=== PATIENT | male | born 1990 | race Caucasian/White ===

== ENCOUNTER 2017-03-07 20:11 | Emergency (ER) | payer SELFPAY ==
[~2017-03-07] VITALS: Ht 193 cm; Wt 77.5 kg
[~2017-03-07 20:11] MED LIST: CLIN300C86 PO; HYDR-4246 PO; NO ROUTINE MEDS
--- OUTSIDE RECORDS SUMMARY | 2017-03-07 20:15 | XMS REPORT | Continuity of Care Document ---
Author Author [facility] Organization [facility] Address Unknown Phone Unavailable Support Name Relationship Address Phone FEBRUARY, ROCKY Mando WILLIS Caregiver [address] [place] [address] Unavailable JEAN BUCK Next Of Kin [address] [place] [address] Insurance Providers Guarantor Nawaf Hanson Jr Address [address] [place] [id number] Email [email or web address] Payer Self Pay Subscriber's Name Valentin FournierNawaf Bonner Relationship 18 Self Chief Complaint and Reason for Visit Chief Complaint Toothache Reason for Visit Dental caries Dental abscess Problems Past Problems Medical Problem Onset Date Dental abscess Unknown Dental caries Unknown Medications Current Home Medications Medication Dose Units Route Directions Days Qty Instructions Start Date Clindamycin Hcl 300 Mg Capsule 1 Cap Oral Three Times A Day 14 Days 42 Capsule TAKE WITH A FULL GLASS OF WATER TO AVOID ESOPHAGEAL IRRITATION. Hydrocodone/Acetaminophen ([place] 5-325 Tablet) 5-325 Tablet 1-2 Tab Oral Q6h/0300,0900,1500,2100 as needed for Pain 20 Tablet 11/10/16 No Routine Meds 11/10/16 Social History Social History Problem Response Recorded Date/Time Onset Date Status Chewing Tobacco Status No 11/10/2016 12:20am Not Applicable Not Applicable Hx Substance Use No 11/10/2016 12:20am Not Applicable Not Applicable Hx Alcohol Use No 11/10/2016 12:20am Not Applicable Not Applicable Query Response Start Date Stop Date Smoking Status Current some day smoker Hospital Discharge Instructions No hospital discharge instructions. Plan of Care Discharge Date 11/10/16 1:01am Disposition 01 DISCHARGED HOME, SELF-CARE Condition at Discharge Improved Instructions/Education Provided Dental Abscess (ED) Dental Caries (ED) Prescriptions See Medication Section Referrals [facility] Order Date: 1 Week Additional Instructions/Education You have had a nerve block; this should last 16 hours +/- 8 hours. Take the antibiotics as prescribed to improve the infection and swelling. Take ibuprofen or naproxen with tylenol for pain; save the norco for severe pain or to help with pain while you sleep. Follow up with a dentist as soon as you can to fix the underlying problem. Care Plan and Goals Physician Care Plan Problem: Dental abscess Goal: Follow up with primary care provider Instructions: Take medications and follow care plan as discussed/written Functional Status No functional status results. Allergies, Adverse Reactions, Alerts No known allergies. Immunizations No immunization records. Vital Signs Acute Vital Signs Vital Response Date/Time Temperature (Fahrenheit) 98.8 deg F (96.8 - 99.1) 11/10/2016 1:01am Temperature (Calculated Celsius) 37.81251 degrees C (36.0 - 37.3) 11/10/2016 1:01am Pulse Rate (adult) 92 bpm (60 - 100) 11/10/2016 1:01am Respiratory Rate 16 breaths/min (10 - 20) 11/10/2016 1:01am O2 Sat by Pulse Oximetry 98 % (90 - 100) 11/10/2016 1:01am Blood Pressure 133/81 mm Hg 11/10/2016 1:01am Height (Feet) 6 feet 11/10/2016 12:09am Height (Inches) 4.00 inches 11/10/2016 12:09am Weight (Kilograms) 83.100 kg 11/10/2016 12:09am Body Mass Index (BMI) 22.0 11/10/2016 12:09am Results No known relevant diagnostic tests, laboratory data and/or discharge summary. Procedures No known history of procedures. Encounters Encounter Location Arrival/Admit Date Discharge/Depart Date Attending Provider Departed Emergency Room [facility] 11/09/16 11:56pm 11/10/16 1: 01am ROCKY ROA DO Recent Diagnosis
[2017-03-07 20:18] VITALS: TEMP 98.7; Ht 193 cm; Wt 77.5 kg
--- NOTE | 2017-03-07 20:37 | ERPDOC ---
Departure Disposition Decision Date: March 07, 2017 Disposition Decision Time: 21:38 Disposition: 01 DISCHARGED HOME, SELF-CARE Impression Impression Impression: Primary Impression: Nausea & vomiting Vomiting type: unspecified Vomiting Intractability: non-intractable Qualified Codes: R11.2 - Nausea with vomiting, unspecified Additional Impression: Dehydration Severity: Moderate Condition: Stable Seen By: Mid-level only Patient Instructions: Acute Nausea and Vomiting (ED) Problems/Meds/Labs Reviewed?: Yes Medications reviewed and manag: Yes Additional Instructions: I do want you to go home and rest. Use the Compazine as needed for nausea. Make sure that you are drinking plenty of non alcoholic and non caffeinated fluids at home. Follow up with PCP for further workup if you are not improving. Follow up care ordered?: Yes Mental Status: Alert Scripts Prochlorperazine Maleate (Compazine) 10 Mg Tablet 10 MG PO TID, #10 TAB 0 Refills Take 1 tablet, by mouth, 3 times a day. Prov: CELESTINA DEL RIO Sandy CONNORS 03/07/17 HPI - Abdominal Pain General Chief Complaint: Nausea,Vomiting,Diarrhea Stated Complaint: NAUSEA/POSSIBLE DEHYDRATION Time Seen by Provider: 20:24 Source: patient History/Exam Limitations: no limitations HPI - Abdominal Pain Initial Comments He went [place] the [place]. Admits to drinking 750ml of whiskey to himself and also a lot of soda and other alcohol. He feels like he over did it with the alcohol. Woke up feeling nauseated today and so he tried to drink a pint of alcohol to help his symptoms. Did help briefly but the nausea returned and he has had some dry heaves as well. The vomiting did start yesterday. He does have a history of ETOH abuse in the past but does not drink so much any longer until this last weekend. Has had chills but no fever. Has epigastric abdominal pain as well. Occurred At: home Onset: Gradual Duration: other (Over the last 4 days) Quality: dullness Location: epigastric Radiation: no radiation Activities at Onset: none Associated Symptoms: fatigue, fever/chills (chills), headache, nausea/vomiting , DENIES: back pain, chest pain, diaphoresis, heartburn, rash, shortness of breath, swelling/mass in abdomen, syncope, weakness Allergies: Coded Allergies: No Known Allergies (Unverified , 03/07/17) Past History Past Medical History ENMT: dental problems Psychological: alcohol abuse Surgical History General: appendix Family History Family History: Negative Social History Smoking Status: Never smoker Substance Use Type: does not use Alcohol Intake: none Review of Systems Constitutional Constitutional: chills, DENIES: dizziness, fatigue, fever, weakness Eyes Vision: DENIES: blurring, double vision ENMT Ears: pain, DENIES: drainage Sinuses: DENIES: congestion, rhinorrhea Mouth/Throat: DENIES: painful swallowing, scratchy throat, sore throat Cardiovascular Cardiac: DENIES: chest pain, orthopnea Rhythm/Rate: DENIES: irregular beat, palpitations Pulmonary Respiratory: DENIES: cough, dyspnea, sputum GI Upper Abdomen: nausea, pain, vomiting Lower Abdomen: DENIES: constipation, diarrhea, pain Integumentary Skin: DENIES: rash Neurological General: DENIES: headache, numbness, tingling, weakness Physical Exam General General Nourishment: well nourished, well developed, appears stated age, no acute distress, adult General Body Habitus: well groomed Vitals and Pain First Documented Vital Signs Date Time Temp Pulse Resp B/P Pulse Ox O2 Delivery O2 Flow Rate FiO2 03/07/17 20:18 98.7 89 16 141/93 98 Room Air Weight: Kilograms: Height (feet): 6 Height (inches): 4.00 Triage Pain Scale: RN VS reviewed by Provider: Yes Normal Exams: Neck: Full range of motion, without adenopathy, JVD, bruits or thyromegaly Chest/Resp: Clear all lemus, with good airflow, and symmetry bilaterally CV: Regular rate and rhythm, without murmur or gallop, Pulses 2+ all extremities, capillary refill, <2 seconds all ext., no pedal edema noted Abdomen: Bowel sounds positive, non-distended, no hepatosplenomegaly, masses or bruits noted Lymphatic: No lymphadenopathy, or lymphedema noted Integumentary: No rashes, hives, or bruising noted Neurologic: Patient is alert, and oriented Psychiatric: Patient exhibits, appropriate attention, emotion and affect Abdomen Palpation: FOUND: soft, tender (generalized TTP in abdomen), voluntary guarding , NOT FOUND: involuntary guarding, rebound Differential Diagnoses Considering: Dehydration, Gastroenteritis, Hyponatremia, Hypokalemia, Hypoglycemia, Metabolic Alkalosis, Metabolic Acidosis, Pancreatitis Progress Results/Orders Orders Procedure Category Date Status Time Cbc W/Auto LAB 03/07/17 Complete Diff-Reflex Manual Cmp - Comprehensive LAB 03/07/17 Complete Metabolic Lipase LAB 03/07/17 Complete Iv Lock (Ed Only) EDM 03/07/17 Transmitted 20:33 Normal Saline (Normal PHA 03/07/17 Complete Saline Iv) 20:45 Ondansetron Inj PHA 03/07/17 Complete (Zofran) 20:45 Prochlorperazine PHA 03/07/17 Complete (Compazine) 21:15 Normal Saline (Normal PHA 03/07/17 In Process Saline Iv) 21:45 Lab Results Laboratory Tests Test 03/07/17 20:50 White Blood Count 11.5T/MM3 Red Blood Count 4.95M/MM3 Hemoglobin 15.6GM/DL Hematocrit 43.7% Mean Corpuscular Volume 88.3UM3 Mean Corpuscular Hemoglobin 31.5UUG Mean Corpuscular Hemoglobin Concent 35.7GM/DL RDW Standard Deviation 40.0FL Platelet Count 210T/MM3 Mean Platelet Volume 9.7UM3 Immature Granulocyte % (Auto) 0.1% Neutrophils (%) (Auto) 68.2% Lymphocytes (%) (Auto) 23.4% Monocytes (%) (Auto) 7.3% Eosinophils (%) (Auto) 0.7% Basophils (%) (Auto) 0.3% Absolute Immature Granulocyte (auto 0.01T/MM3 Absolute Neutrophils (auto) 7.9T/MM3 Absolute Lymphocytes (auto) 2.7T/MM3 Absolute Monocytes (auto) 0.8T/MM3 Absolute Eosinophils (auto) 0.1T/MM3 Absolute Basophils (auto) 0.0T/MM3 Turbidity < 20 Sodium Level 144MEQ/L Potassium Level 3.6MEQ/L Chloride Level 107MEQ/L Carbon Dioxide Level 22MEQ/L Anion Gap 15MEQ/L Blood Urea Nitrogen 17.0MG/DL Creatinine 0.9MG/DL Glomerular Filtration Rate Calc 100 BUN/Creatinine Ratio 19RATIO Glucose Level 99MG/DL Calculated Osmolality 279MOSM/KG Calcium Level 9.7MG/DL Total Bilirubin 1.20MG/DL Icterus Index < 2 Aspartate Amino Transf (AST/SGOT) 49U/L Alanine Aminotransferase (ALT/SGPT) 41U/L Alkaline Phosphatase 59U/L Total Protein 6.9G/DL Albumin 4.4G/DL Globulin 2.5G/DL Albumin/Globulin Ratio 1.8RATIO Lipase 135U/L Chemistry Specimen Hemolysis < 15 Medications Current ED Medications Sodium Chloride (Normal Saline IV) 1,000 ml @ 1,000 mls/hr Q1H ONCE IV Last administered on 03/07/17 20:53; Start 03/07/17 at 20:45; Stop 03/07/17 at 21:44 ; Status DC Ondansetron HCl (Zofran) 4 mg O ONCE IV Last administered on 03/07/17 20:53; Start 03/07/17 at 20:45; Stop 03/07/17 at 20:46; Status DC Prochlorperazine Edisylate 10 mg 10 mg O ONCE IV Last administered on 21:22; Start 03/07/17 at 21:15; Stop 03/07/17 at 21:16; Status DC Sodium Chloride (Normal Saline IV) 1,000 ml @ 1,000 mls/hr Q1H ONCE IV Last administered on 03/07/17 21:42; Start 03/07/17 at 21:45; Stop 03/07/17 at 22:44 Progress Progress He is feeling a little better after 1 liter of IVF. Still having some swelling and pain in his hands bilaterally. His mother does report that he has had this kind of reaction in the past with heavy drinking however. Will give him a 2nd liter of IVF and have him go home with some Compazine. CELESTINA DEL RIO APRN March 07, 2017 20:37
[2017-03-07] MEDS ORDERED: ONDANSETRON 4mg/2ml INJECTION IV ONE (20:45)
[2017-03-07] MEDS ORDERED: NORMAL SALINE 1,000 ML IV ONE ×2 (20:45→21:45)
[2017-03-07 20:56] LABS: BASOPHILS % (AUTO) 0.3 % (0-2); EOSINOPHILS # (AUTO) 0.1 T/MM3 (0-0.5); EOSINOPHILS % (AUTO) 0.7 % (0-4); HCT - HEMATOCRIT 43.7 % (41-53); HGB - HEMOGLOBIN 15.6 GM/DL (13.5-17.5); IMMATURE GRANULOCYTE # (AUTO) 0.01 T/MM3 (0.00-0.03); IMMATURE GRANULOCYTE % (AUTO) 0.1 % (0.0-0.5); LYMPHOCYTES # (AUTO) 2.7 T/MM3 (1-4.8); LYMPHOCYTES % (AUTO) 23.4 % (23-45); MEAN CORPUSCULAR HGB 31.5 UUG (26-34); MEAN CORPUSCULAR HGB CONC(MCHC 35.7 GM/DL (31-37); MEAN CORPUSCULAR VOLUME 88.3 UM3 (80-100); MEAN PLATELET VOLUME 9.7 UM3 (9.4-12.4); MONOCYTES # (AUTO) 0.8 T/MM3 (0-0.8); MONOCYTES % (AUTO) 7.3 % (0-9.0); NEUTROPHILS #(AUTO)-ABSOLUTE 7.9 T/MM3 (1.8-7.7); NEUTROPHILS % (AUTO) 68.2 % (33-66); RED BLOOD COUNT 4.95 M/MM3 (4.50-5.90); WBC - WHITE BLOOD COUNT 11.5 T/MM3 (4.5-11.0)
[2017-03-07 21:05] LABS: ALBUMIN 4.4 G/DL (3.5-5.0); ALBUMIN/GLOBULIN RATIO 1.8 RATIO (1.1-2.2); ALKALINE PHOSPHATASE 59 U/L (38-126); ALT (SGPT) 41 U/L (21-72); ANION GAP 15 MEQ/L (5-15); AST (SGOT) 49 U/L (17-59); BUN/CREATININE RATIO 19 RATIO (6-26); CALCIUM 9.7 MG/DL (8.4-10.2); CHLORIDE 107 MEQ/L (98-107); CO2 - CARBON DIOXIDE 22 MEQ/L (22-30); CREATININE 0.9 MG/DL (0.8-1.5); GLOMERULAR FILTRATION RATE 100; GLUCOSE 99 MG/DL (75-110); LIPASE 135 U/L (23-300); POTASSIUM 3.6 MEQ/L (3.6-5); SODIUM 144 MEQ/L (134-144); TOTAL PROTEIN 6.9 G/DL (6.3-8.2)
--- NOTE | 2017-03-07 21:10 | NUR ---
VOMITTING PT IS WRETCHING AND VOMITS VERY SMALL AMOUNT OF LIQUID AT THIS TIME, PROVIDER NOTIFIED, ORDER WILL BE ENTERED.
[2017-03-07] MEDS ORDERED: PROCHLORPERAZINE 10mg/2ml INJECTION IV ONE (21:15)
[2017-03-07] MEDS ORDERED: PROC-14 PO (21:39)
--- NOTE | 2017-03-07 21:40 | NUR ---
STATUS PT IS SLEEPING AT THIS TIME, NO S/S OF ACUTE DISTRESS, NO FURTHER EPISODES OF VOMITTING.
[2017-03-07 22:52] VITALS: BP 124/65; PULSE 94; RESP 16; O2SAT 95
--- NOTE | 2017-03-07 22:52 | NUR ---
DEPART PT IS DISCHARGED AT THIS TIME, INSTRUCTIONS ARE REVIEWED AND UNDERSTANDING IS VOICED. PT LEAVES AMBULATORY AT THIS TIME AND REPORTS COMPLETE RESOLUTION OF HIS SYMPTOMS.
== END 2017-03-07 22:52 | disposition home or self-care (01) ==
LOC: ED 20:11
DX: R11.2 Nausea with vomiting, unspecified (principal); R68.83 Chills (without fever); E86.0 Dehydration; M79.89 Other specified soft tissue disorders; M79.642 Pain in left hand; M79.641 Pain in right hand
CPT/HCPCS: 80053; 83690; 85025